=== PATIENT | female | born 1960 | race Caucasian/White ===

== ENCOUNTER → 2018-09-25 | Outpatient (CLI) | payer BC | LOC: OD 09:43 | PROVIDERS: ATTEND Otolaryngology | DX: J30.9 Allergic rhinitis, unspecified (principal) | CPT/HCPCS: 36415; 82785; 86003 ==

== ENCOUNTER → 2018-11-10 | Outpatient (CLI) | payer BC ==
--- NOTE | 2018-11-10 14:02 | RADIOLOGY REPORT (SQ) ---
EXAM DESCRIPTION: CT SINUSES FOR ENT COMPLETED DATE/TIME: 11/10/2018 1:12 pm REASON FOR STUDY: ALLERGIC RHINITIS, UNSPEC SEASONALLY UNSPEC TRIGGER (J30.9) J30.9 ALLERGIC RHINIT IS, UNSPECIFIED COMPARISON: None. TECHNIQUE: Noncontrast scanning through the paranasal sinuses using bone algorithm. Reconstructed MPR images reviewed. All images stored on PACS. Images acquired for image guided surgery. All CT scanners at this facility use dose modulation, iterative reconstruction, and/or weight based d osing when appropriate to reduce radiation dose to as low as reasonably achievable (ALARA). [facility]: Dose Right [facility]: CareDose [facility]: Dose Right [facility]: Teradose 4D [facility]: [employer] RADIATION DOSE: mGy. FINDINGS: NASAL PASSAGES: Clear. No polyps or masses. OSTEOMEATAL UNITS AND NASOFRONTAL DUCTS: Patent. No agger nasi or David cells. MAXILLARY SINUSES: Well-pneumatized and clear. Maxillary sinus outlets are patent. ETHMOID SINUSES: Well-pneumatized and clear. SPHENOID SINUSES: Well-pneumatized and clear. No sphenoethmoid air cells or pneumatized pterygoid rec ess. No pneumatized dorsal sella. FRONTAL SINUSES: Well-pneumatized and clear. MASTOID AIR CELLS: Clear. ORBITS: Normal and symmetrical. NASAL SEPTUM: Midline. No nasal septal spurs. TEMPOROMANDIBULAR JOINTS: Normal. TURBINATES: Right jaycob bullosa. MUCOPERIOSTEAL THICKENING: No. MUCOCELE: No. OTHER: No other significant findings. IMPRESSION: NO EVIDENCE OF ACUTE SINUSITIS. TECHNICAL DOCUMENTATION: JOB ID: [id number] [place]-72 Quality ID # [id number]: Final reports with documentation of one or more dose reduction techniques (e.g., Au tomated exposure control, adjustment of the mA and/or kV according to patient size, use of iterative reconstruction technique) 2010 [employer]- All Rights Reserved Reading location - IP/workstation name: [email or web address]
== END ==
LOC: RAD 12:44
PROVIDERS: ATTEND Otolaryngology
DX: J30.9 Allergic rhinitis, unspecified (principal)
CPT/HCPCS: 70486